=== PATIENT | female | born 1995 | race Caucasian/White ===

== ENCOUNTER 2022-01-01 11:37 | Emergency (ER) | payer BC ==
[~2022-01-01] VITALS: Ht 160 cm; Wt 75.3 kg
[2022-01-01 12:16] VITALS: BP 145/70
--- NOTE | 2022-01-01 12:30 | NUR ---
PATIENT PRESENTS TO ED WITH ANXIETY . PT STATES SHE HAS BEEN FEELING ANXIOUS AND BREATHING HARD . DENIES N/V/D; SKIN IS PINK/WARM/DRY; AAOX4 WITH EVEN AND STEADY GAIT; LUNGS CLEAR BL; HR EVEN AND REGULAR; PT DENIES ANY FEVER, CP, SOB, OR COUGH AT THIS TIME; PATIENT STATES PAIN OF 0/10 AT THIS TIME; VSS; PATIENT POSITIONED FOR COMFORT; HOB ELEVATED; BEDRAILS UP X2; BED DOWN. ER MD MADE AWARE OF PT STATUS. NOTED BY DARIO STEVENS STUDENT
[2022-01-01] MEDS ORDERED: ASPIRIN 81 MG TAB.CHEW PO ONE (12:40)
--- NOTE | 2022-01-01 12:50 | NUR ---
labs drawn from iv 20g right ac, given to lab at bedside
--- NOTE | 2022-01-01 13:00 | NUR ---
X-Ray at bedside.
--- NOTE | 2022-01-01 13:15 | NUR ---
Note undone in EDM - 01/01/22 at 1322 by [facility] PATIENT PRESENTS TO ED WITH ANXIETY . PT STATES SHE HAS BEEN FEELING ANXIOUS AND BREATHING HARD . DENIES N/V/D; SKIN IS PINK/WARM/DRY; AAOX4 WITH EVEN AND STEADY GAIT; LUNGS CLEAR BL; HR EVEN AND REGULAR; PT DENIES ANY FEVER, CP, SOB, OR COUGH AT THIS TIME; PATIENT STATES PAIN OF 0/10 AT THIS TIME; VSS; PATIENT POSITIONED FOR COMFORT; HOB ELEVATED; BEDRAILS UP X2; BED DOWN. ER MD MADE AWARE OF PT STATUS.
[2022-01-01 13:17] LABS: BASOPHILS % (AUTO) 0.3 % (0.0-2.0); EOSINOPHILS % (AUTO) 0.1 % (0.0-4.0); HEMATOCRIT 37.8 % (36-48); HEMOGLOBIN 12.6 g/dL (12.0-16.0); LYMPHOCYTES # (AUTO) 0.9 K/uL (2.5-16.5); LYMPHOCYTES % (AUTO) 10.9 % (20.5-51.1); MEAN CORPUSCULAR HEMOGLOBIN 29 pg (27-31); MEAN CORPUSCULAR HGB CONC 33 g/dL (33-37); MEAN CORPUSCULAR VOLUME 86.6 fL (80-94); MONOCYTES # (AUTO) 0.4 K/uL (0.8-1.0); MONOCYTES % (AUTO) 4.6 % (1.7-9.3); NEUTROPHILS # (AUTO) 6.7 K/uL (1.8-7.7); NEUTROPHILS % (AUTO) 84.1 % (42.2-75.2); PLATELET COUNT (AUTO) 222 K/uL (140-450); RED BLOOD CELL COUNT(AUTO) 4.37 MIL/uL (4.20-5.40); RED CELL DISTRIBUTION WIDTH 13.3 % (11.6-13.7)
[2022-01-01 13:24] LABS: ALBUMIN 3.8 g/dL (3.4-5.0); ANION GAP 11.1 (8-16); CARBON DIOXIDE 27.2 mmol/L (21-32); POTASSIUM 3.3 mmol/L (3.5-5.1); PROTHROMBIN TIME 10.1 secs (10.8-13.4); TOTAL BILIRUBIN 0.3 mg/dL (0.0-1.0)
[2022-01-01 13:40] LABS: D-DIMER < 100 ng/ml (0-400)
--- NOTE | 2022-01-01 13:53 | NUR ---
UA SENT TO LAB
[2022-01-01 14:52] LABS: CANNABINOID, URINE NEGATIVE ng/mL (NEG <=50); COCAINE, URINE POSITIVE ng/mL (NEG <=300)
[2022-01-01 14:54] LABS: BARBITURATE, URINE NEGATIVE ng/ml (NEG <=200); BENZODIAZEPINE, URINE NEGATIVE ng/mL (NEG <=200); OPIATE, URINE NEGATIVE ng/mL (NEG <=2000); PHENCYCLIDINE SCREEN,URINE NEGATIVE ng/mL (NEG <=25)
[2022-01-01 17:11] VITALS: BP 145/70
--- NOTE | 2022-01-01 17:11 | NUR ---
IV WAS REMOVED, PT TOLERATED WELL. NOTED BY DARIO STEVENS STUDENT
--- NOTE | 2022-01-01 17:11 | NUR ---
Patient discharged with v/s stable. Written and verbal after care instructions given and explained. Patient verbalized understanding. Ambulatory with steady gait. All questions addressed prior to discharge. Advised to follow up with PMD. labs and xray copy given
== END 2022-01-01 17:11 | disposition home or self-care (01) ==
LOC: MED 11:37
DX: R07.9 Chest pain, unspecified (principal); R06.00 Dyspnea, unspecified; F12.90 Cannabis use, unspecified, uncomplicated
CPT/HCPCS: 36415; 71045; 80053; 80305; 81002; 81025; 83880; 84484; 85025; 85379; 85610; 85730; 93005; 99285